=== PATIENT | female | born 1965 | race Native Hawaiian/Other Pacific Islander ===

== ENCOUNTER 2019-08-30 15:14 | Outpatient (CLI) | payer BC, SELFPAY ==
--- NOTE | 2019-08-30 | US_ITS ---
WS: [id number] ULTRASOUND ABDOMEN LIMITED CLINICAL INFORMATION: RLQ ABDOMINAL PAIN COMPARISON: None. FINDINGS: Appendix not definitely visualized. Technically difficult examination due to bowel gas. Tubular loop of bowel in the right lower quadrant slightly dilated measuring 10 mm although no surrounding edema o r fluid. Recommend further evaluation with CT if symptoms persistent US/US abdomen limited [id number] IMPRESSION: Appendix not definitely visualized. No edematous bowel or free fluid. Recommend further evaluation with CT if symptoms persist
== END 2019-08-30 15:15 | disposition home or self-care (01) ==
LOC: RADOUTREAD 08-31 07:41
PROVIDERS: Visit Provider Nurse Practitioner Family
DX: Z01.89 Encounter for other specified special examinations (principal)

== ENCOUNTER 2021-09-26 06:00 | Outpatient (RCR) | payer OTHER, SELFPAY | END 2021-09-26 23:59 | disposition home or self-care (01) | LOC: SPT 06:00 | PROVIDERS: PCP Orthopaedic Surgery; Referring Provider Orthopaedic Surgery; Visit Provider Orthopaedic Surgery | DX: S52.124D Nondisplaced fracture of head of right radius, subsequent encounter for closed fracture with routine healing (principal); X58.XXXD Exposure to other specified factors, subsequent encounter | CPT/HCPCS: 97161 ==

== ENCOUNTER 2021-09-27 06:00 | Outpatient (RCR) | payer OTHER, SELFPAY | END 2021-10-26 23:59 | disposition home or self-care (01) | LOC: SPT 06:00 | PROVIDERS: PCP Orthopaedic Surgery; Referring Provider Orthopaedic Surgery; Visit Provider Orthopaedic Surgery | DX: S52.124D Nondisplaced fracture of head of right radius, subsequent encounter for closed fracture with routine healing (principal); X58.XXXD Exposure to other specified factors, subsequent encounter | CPT/HCPCS: 97022; 97110 ==